=== PATIENT | female | born 1975 | race Caucasian/White ===

== ENCOUNTER 2017-03-10 19:21 | Inpatient (IN) | payer MEDICAID, OTHER ==
[~2017-03-10] VITALS: Ht 167.6 cm; Wt 122.5 kg
[~2017-03-10 19:21] MED LIST: DIPH25CA83 PO
[2017-03-11] MEDS ORDERED: SODIUM CHLORIDE 0.9% 1000ML BAG (SEPSIS BOLUS) IV ONE (01:45)
[2017-03-11 02:04] LABS: BASOPHILS % 0.4 % (0.0-2.0); EOSINOPHILS % 2.9 % (0.0-5.0); HEMATOCRIT. 36.8 % (36.0-48.0); HEMOGLOBIN. 12.2 g/dL (12.0-16.0); LYMPHOCYTES % 26.8 % (20.0-50.0); MEAN CORPUSCULAR HEMOGLOBIN 28.4 pg (28.0-32.0); MEAN CORPUSCULAR VOLUME 85.9 fL (81.0-99.0); MEAN PLATELET VOLUME 7.1 fl (7.4-10.4); NEUTROPHILS % 63.9 % (40.0-76.0); PLATELET 456 x1000/uL (130-400); RED BLOOD CELL COUNT 4.28 mill/uL (4.2-5.4); RED CELL DISTRIBUTION WIDTH 14.1 % (11.6-14.6)
[2017-03-11 02:08] LABS: CHLORIDE 108 mEq/L (98-107)
[2017-03-11 02:10] LABS: PROTHROMBIN TIME 10.1 sec (9.4-11.6)
[2017-03-11 02:13] LABS: CLARITY URINE CLEAR (CLEAR); COLOR URINE YELLOW (YELLOW); GLUCOSE URINE NEGATIVE (NEGATIVE); KETONES URINE NEGATIVE (NEGATIVE); LEUKOCYTE ESTERASE URINE 2+ (NEGATIVE); NITRITE URINE POSITIVE (NEGATIVE); OCCULT BLOOD URINE 1+ (NEGATIVE); PROTEIN URINE NEGATIVE (NEGATIVE); SPECIFIC GRAVITY URINE 1.019 (1.005-1.030); UROBILINOGEN URINE 0.2 E.U./dL (0.2-1.0)
[2017-03-11] MEDS ORDERED: VANCOMYCIN 1 G PREMIX 200 ML IV SCH (02:15)
[2017-03-11] MEDS ORDERED: PIPERACILLIN/TAZ 3.375G PREMIX 50 ML IV SCH (02:15)
[2017-03-11 02:16] LABS: CARBON DIOXIDE 27 mEq/L (21-32)
[2017-03-11] MEDS ORDERED: DIPHENHYDRAMINE 50MG/ML VIAL IV SCH (03:00)
[2017-03-11] MEDS ORDERED: SODIUM CHLORIDE 0.9% 1,000 ML IV SCH (04:53)
[2017-03-11 08:45] VITALS: BP_SYST 111; BP_SYST 115; BP_DIAS 74
[2017-03-11] MEDS ORDERED: LIDOCAINE HCL 1% 20ML VIAL (Pyxis) INJ ONE (11:41)
[2017-03-11] MEDS ORDERED: SODIUM BICARBONATE 4.2% 5 MEQ/10 ML DISP.SYRIN IV ONE (11:41)
[2017-03-11 11:45] VITALS: BP 134/62
[2017-03-11] MEDS: DEXT 5%/0.45% NACL 1000ML 1,000 ML IV SCH (12:23)
[2017-03-11] MEDS ORDERED: SODIUM CHLORIDE 0.9% 10ML VIAL ONE (12:38)
[2017-03-11] MEDS ORDERED: IOHEXOL-300 100 ML BOTTLE ONE (12:38)
[2017-03-11] MEDS ORDERED: LEVOFLOXACIN 500MG PREMIX 100 ML IV SCH (13:00)
[2017-03-11 15:59] VITALS: BP 126/78
[2017-03-11] MEDS ORDERED: VANCOMYCIN 1500MG in DEXTROSE 5% WATER 250ML IV NR (18:00)
[2017-03-11] MEDS: PIPERACILLIN/TAZ 3.375G PREMIX 50 ML IV SCH (18:23)
[2017-03-11] MEDS: ONDANSETRON HCL 4MG/2ML VIAL IV PRN (18:33)
[2017-03-11 20:00] VITALS: BP 121/83
[2017-03-11] MEDS ORDERED: TETANUS, DIPHTHERIA, PERTUSSIS VAC/PF 0.5ML (>7YR OLD) IM ONE (21:00)
[2017-03-11] MEDS: DIPHENHYDRAMINE 50MG/ML VIAL IV PRN (21:18)
[2017-03-12] VITALS: BP 108/66
[2017-03-12] MEDS: PIPERACILLIN/TAZ 3.375G PREMIX 50 ML IV SCH ×3 (01:11→11:45)
[2017-03-12] MEDS: DEXT 5%/0.45% NACL 1000ML 1,000 ML IV SCH ×2 (01:12→14:10)
[2017-03-12] MEDS: DIPHENHYDRAMINE 50MG/ML VIAL IV PRN (03:33)
[2017-03-12 04:00] VITALS: BP 120/82
[2017-03-12 06:58] LABS: BASOPHILS % 0.7 % (0.0-2.0); EOSINOPHILS % 5.6 % (0.0-5.0); HEMOGLOBIN. 11.6 g/dL (12.0-16.0); LYMPHOCYTES % 20.4 % (20.0-50.0); MEAN CORPUSCULAR HEMOGLOBIN 28.3 pg (28.0-32.0); MEAN CORPUSCULAR VOLUME 85.8 fL (81.0-99.0); MONOCYTES % 8.6 % (2.0-8.0); NEUTROPHILS % 64.7 % (40.0-76.0); PLATELET 394 x1000/uL (130-400); RED BLOOD CELL COUNT 4.08 mill/uL (4.2-5.4); RED CELL DISTRIBUTION WIDTH 13.6 % (11.6-14.6)
[2017-03-12] MEDS ORDERED: VANCOMYCIN 1 G PREMIX 200 ML IV SCH (07:00)
[2017-03-12 07:25] LABS: CARBON DIOXIDE 27 mEq/L (21-32); CHLORIDE 102 mEq/L (98-107)
[2017-03-12] MEDS: ONDANSETRON HCL 4MG/2ML VIAL IV PRN (07:30)
[2017-03-12 08:00] VITALS: BP 121/65
[2017-03-12 12:00] VITALS: BP 137/82
[2017-03-12 13:42] VITALS: BP 132/82
== END 2017-03-12 17:00 | disposition home or self-care (01) | DRG 813 ==
LOC: ER 19:50 → 8WST 03-11 05:01 → EDBEDREQ 03-11 05:12 → EDBEDREQSVC 03-11 05:12 → ENRESERV 03-11 07:53 → 8WST 03-11 11:15
PROVIDERS: ADMIT Internal Medicine; ATTEND Internal Medicine
PROC: 0W9F3ZZ Drainage of Abdominal Wall, Percutaneous Approach (ICD-10-PCS; principal; 2017-03-11)
DX: K91.872 Postprocedural seroma of a digestive system organ or structure following a digestive system procedure (principal); E44.1 Mild protein-calorie malnutrition; I10 Essential (primary) hypertension; L03.311 Cellulitis of abdominal wall; K43.9 Ventral hernia without obstruction or gangrene; Y83.8 Other surgical procedures as the cause of abnormal reaction of the patient, or of later complication, without mention of misadventure at the time of the procedure; Z68.41 Body mass index [BMI] 40.0-44.9, adult; E66.01 Morbid (severe) obesity due to excess calories; N39.0 Urinary tract infection, site not specified; Z87.442 Personal history of urinary calculi; Z88.8 Allergy status to other drugs, medicaments and biological substances
CPT/HCPCS: 20611; 36415; 71010; 74177; 80048; 80053; 81001; 83605; 85025; 85610; 87040; 87070; 87086; 87205; 90715; 93005; 96361; 96365; 96375; 99285; A4216; C1893; J1200; J1956; J2405; J2543; J3370; J3490; J7030; J7060; Q9967

== ENCOUNTER 2017-07-26 15:50 | Emergency (ER) | payer MEDICAID ==
[~2017-07-26] VITALS: Ht 167.6 cm; Wt 130.0 kg
[2017-07-26] MEDS ORDERED: CEPHALEXIN 500MG CAPSULE PO ONE (19:30)
[2017-07-26] MEDS ORDERED: SULFAMETHOXAZOLE/TRIMETHOPRIM 800/160MG TABLET PO ONE (19:30)
[2017-07-26] MEDS ORDERED: ACETAMINOPHEN WITH CODEINE 300/30MG TABLET PO ONE (19:30)
[2017-07-26 20:30] VITALS: BP 118/64
== END 2017-07-26 20:00 | disposition home or self-care (01) ==
LOC: ER 16:12
DX: L03.311 Cellulitis of abdominal wall (principal); Z87.442 Personal history of urinary calculi; Z87.891 Personal history of nicotine dependence
CPT/HCPCS: 99284

== ENCOUNTER 2022-04-02 16:30 | Emergency (ER) | payer MEDICAID, OTHER ==
[~2022-04-02] VITALS: Ht 165.1 cm; Wt 137.0 kg
[2022-04-02] MEDS ORDERED: KETOROLAC 15MG/ML VIAL IV ONE (18:45)
[2022-04-02] MEDS ORDERED: LIDOCAINE 5% PATCH TOP SCH (18:45)
[2022-04-02] MEDS ORDERED: QUETIAPINE FUMARATE 50MG TABLET PO SCH (18:45)
[2022-04-02] MEDS ORDERED: GABAPENTIN 400MG CAPSULE PO NR (18:45)
[2022-04-02 18:49] LABS: BASOPHILS % 1.8 % (0.0-2.0); HEMATOCRIT. 41.2 % (36.0-48.0); HEMOGLOBIN. 14.3 g/dL (12.0-16.0); LYMPHOCYTES % 18.7 % (20.0-50.0); MEAN CORPUSCULAR HEMOGLOBIN 33.1 pg (28.0-32.0); MEAN CORPUSCULAR VOLUME 95.8 fL (81.0-99.0); MONOCYTES % 6.4 % (2.0-8.0); NEUTROPHILS % 71.1 % (40.0-76.0); PLATELET 279 x1000/uL (130-400); RED BLOOD CELL COUNT 4.31 mill/uL (4.2-5.4); RED CELL DISTRIBUTION WIDTH 14.5 % (11.6-14.6)
[2022-04-02 19:01] LABS: CHLORIDE 104 mEq/L (98-107)
[2022-04-02 19:04] LABS: HCG SCREEN NEGATIVE
[2022-04-02 19:08] LABS: ETHANOL BLOOD < 10 mg/dL
[2022-04-02] MEDS ORDERED: IBUP-2029 MT (22:38)
[2022-04-02] MEDS ORDERED: NYST15OI TP (23:16)
[2022-04-02 23:17] LABS: *AMPHETAMINES SCREEN URINE NEGATIVE (NEGATIVE); *BARBITURATES SCREEN URINE NEGATIVE (NEGATIVE); CANNABINOID URINE SCREEN NEGATIVE (NEGATIVE); METHADONE URINE SCREEN NEGATIVE (NEGATIVE); OPIATES URINE SCREEN NEGATIVE (NEGATIVE); PHENCYCLIDINE URINE SCREEN NEGATIVE (NEGATIVE)
[2022-04-02 23:20] LABS: CLARITY URINE CLOUDY (CLEAR); COLOR URINE YELLOW (YELLOW)
[2022-04-02 23:21] LABS: KETONES URINE NEGATIVE (NEGATIVE); NITRITE URINE NEGATIVE (NEGATIVE); OCCULT BLOOD URINE 1+ (NEGATIVE); PROTEIN URINE 1+ (NEGATIVE); SPECIFIC GRAVITY URINE 1.025 (1.005-1.030); UROBILINOGEN URINE 0.2 E.U./dL (0.2-1.0)
[2022-04-02 23:22] LABS: LEUKOCYTE ESTERASE URINE 2+ (NEGATIVE)
[2022-04-02] MEDS ORDERED: SULF1TAB48 MT (23:24)
[2022-04-02 23:32] LABS: *BENZODIAZEPINES SCREEN URINE PRESUMTIVE POSITIVE (NEGATIVE); *COCAINE SCREEN URINE PRESUMTIVE POSITIVE (NEGATIVE)
[2022-04-03 00:28] VITALS: BP 121/78
== END 2022-04-02 23:32 | disposition home or self-care (01) ==
LOC: ER 16:30
DX: N20.0 Calculus of kidney (principal); F12.10 Cannabis abuse, uncomplicated; Z13.9 Encounter for screening, unspecified; Z88.6 Allergy status to analgesic agent; Z88.5 Allergy status to narcotic agent; Z88.8 Allergy status to other drugs, medicaments and biological substances; Z98.890 Other specified postprocedural states
CPT/HCPCS: 36415; 71045; 73590; 74176; 80053; 80305; 80320; 81003; 83690; 84703; 85025; 87086; 93005; 93971; 96374; 99285; J1885; Z7610; G0480